=== PATIENT | female | born 1990 | race Two or more races ===

== ENCOUNTER 2018-08-14 18:05 | Emergency (ER) | payer SELFPAY ==
[~2018-08-14] VITALS: Ht 160 cm; Wt 79.4 kg
[2018-08-14 20:44] VITALS: BP 118/58
[2018-08-14 20:54] LABS: BILIRUBIN,URINE NEGATIVE (NEG); CLARITY,URINE CLEAR; COLOR,URINE YELLOW; NITRITE,URINE NEGATIVE (NEG); PH,URINE 7.5; PROTEIN,URINE NEGATIVE (NEG-TRACE); UROBILINOGEN,URINE 0.2 mg/dL (0.2 mg/dL)
--- NOTE | 2018-08-14 20:59 | PHYS DOC ---
Adult General Chief Complaint Chief Complaint: PAIN ON URINATION HPI HPI Patient is a 28 year old female who presents with dysuria. Patient has had symptoms over the last 3-4 days. She does describe some urinary frequency and dysuria. She also had some pain in the left flank. No fever or chills. Her last menstrual cycle was 2 weeks ago. She does complain of some irregular vaginal discharge as well. She is sexually active with one partner. She denies pelvic pain or cramping. Review of Systems Review of Systems Constitutional: Denies fever or chills HENT: Denies nasal congestion Respiratory: Denies cough Cardiovascular: No additional information GI: Denies abdominal pain, nausea : Denies dysuria Musculoskeletal: Denies back pain Integument: Denies rash or skin lesions Neurologic: Denies headache Endocrine: Denies polyuria All other systems were reviewed and found to be within normal limits, except as documented in this note. Current Medications Current Medications Current Medications Medications (Trade) Dose Ordered Sig/Leroy Start Time Stop Time Status Last Admin Dose Admin Nitrofurantoin Macrocrystals (Macrobid) 100 mg 1X ONCE 08/14/18 23:00 08/14/18 23:01 Allergies Allergies Allergies Coded Allergies Type Severity Reaction Last Updated Verified No Known Drug Allergies 08/14/18 No Physical Exam Physical Exam Constitutional: Well developed, well nourished, no acute distress, non-toxic appearance HENT: Normocephalic, atraumatic, bilateral external ears normal, oropharynx moist Neck: Normal range of motion Cardiovascular:Heart rate regular rhythm, no murmur Lungs & Thorax: Bilateral breath sounds clear to auscultation Abdomen: Bowel sounds normal, soft, no tenderness Skin: Warm, dry, no erythema, no rash Back: No tenderness, no CVA tenderness Neurologic: Alert and oriented X 3 Psychologic: Affect normal Pelvic: Normal external female genitalia. Vaginal mucosa is moist and noninflamed. The cervical os is visualized to be closed with some discharge that appears more physiologic. There is no cervical motion tenderness. Adnexa are negative for masses or tenderness. Current Patient Data Vital Signs Vital Signs Date Time Temp Pulse Resp B/P (MAP) Pulse Ox O2 Delivery O2 Flow Rate FiO2 08/14/18 20:44 97.6 69 18 118/58 (78) 98 Room Air 97.6 Lab Values Laboratory Tests Test 08/14/18 20:44 9/28/18 20:51 08/14/18 22:10 Urine Collection Type Unknown Urine Color Yellow Urine Clarity Clear Urine pH 7.5 Urine Specific [place] >=1.030 Urine Protein Negative mg/dL (NEG-TRACE) Urine Glucose (UA) >=1000 mg/dL (NEG) Urine Ketones (Stick) Trace mg/dL (NEG) Urine Blood Small (NEG) Urine Nitrite Negative (NEG) Urine Bilirubin Negative (NEG) Urine Urobilinogen Dipstick 0.2 mg/dL (0.2 mg/dL) Urine Leukocyte Esterase Negative (NEG) Urine RBC 0 /HPF (0-2) Urine WBC 5-10 /HPF (0-4) Urine Squamous Epithelial Cells Mod /LPF Urine Bacteria Few /HPF (0-FEW) POC Urine HCG, Qualitative Hcg negative (Negative) Glucose (Fingerstick) 264 mg/dL (70-99) H Microbiology 08/14/18 Wet Prep - Final, Complete EKG EKG [] Radiology/Procedures Radiology/Procedures [] Course & Med Decision Making Course & Med Decision Making Pertinent Labs and Imaging studies reviewed. (See chart for details) Patient is seen and examined. Will check UA/UCG, pelvic, GC/CHLAM, Wet mount. 22:00: Pelvic exam was completed and accompanied by female registered nurse. Wet mount is negative for Trichomonas. GC and chlamydia are pending. The patient has a few WBCs. She also is noted to have blood glucose in her urine. An Accu-Chek was completed with a blood sugar of 240. The patient is known to have hyperglycemia and has been evaluated by her primary care doctor for this condition. The source of her symptoms is unclear. The urine is not overtly infected but she is symptomatic. Because of this, the patient is placed on Macrobid over the next 5 days. She is advised to follow-up with her primary care doctor or return to the ER for any new or worsening symptoms. Urine Cx added to her lab panel. Broderick Disclaimer Broderick Disclaimer This electronic medical record was generated, in whole or in part, using a voice recognition dictation system. Departure Departure Referrals: UNKNOWN PCP NAME (PCP) Scripts Nitrofurantoin Monohyd/M-Cryst (MACROBID 100 MG CAPSULE) 100 Mg Capsule 1 CAP PO BID, #10 CAP Prov: QASIM QUIGLEY DO 08/14/18 QASIM QUIGLEY DO Aug 14, 2018 20:58
[2018-08-14 21:00] LABS: BACTERIA,URINE FEW /HPF (0-FEW); RBC,URINE 0 /HPF (0-2); SQUAMOUS EPITHELIAL CELL,UR MOD /LPF
[2018-08-14] MEDS ORDERED: NITR100C62 PO (22:17)
[2018-08-14] MEDS ORDERED: NITROFURANTOIN MONOHYD/M-CRYST 100 MG CAPSULE. PO ONE (23:00)
== END 2018-08-14 22:35 | disposition home or self-care (01) ==
LOC: ER 18:05
DX: R30.0 Dysuria (principal); R10.9 Unspecified abdominal pain; R73.9 Hyperglycemia, unspecified
CPT/HCPCS: 81001; 81025; 82962; 87086; 87491; 87591; 99284; Q0111